=== PATIENT | male | born 1940 | race African-American/Black ===

== ENCOUNTER 2016-06-25 13:38 | Inpatient (IN) | payer MEDICARE, OTHER ==
[~2016-06-25] VITALS: Ht 182.9 cm; Wt 71.2 kg
[~2016-06-25 13:38] MED LIST: CLIN-78; PROPRANOLOL; [UNRECOGNIZED DRUG - OTHER]
[2016-06-25 15:22] LABS: BASOPHILS % 0.5 % (0.0-2.0); EOSINOPHILS % 2.4 % (0.0-5.0); HEMATOCRIT. 33.4 % (42.0-52.0); LYMPHOCYTES % 10.5 % (20.0-50.0); MEAN CORPUSCULAR HEMOGLOBIN 30.8 pg (28.0-32.0); MEAN CORPUSCULAR VOLUME 93.2 fL (80.0-94.0); MEAN PLATELET VOLUME 12.1 fl (7.4-10.4); MONOCYTES % 14.7 % (2.0-8.0); NEUTROPHILS % 71.9 % (40.0-76.0); PLATELET 126 x1000/uL (130-400); RED BLOOD CELL COUNT 3.58 mill/uL (4.7-6.1); WHITE BLOOD COUNT 10.4 x1000/uL (4.5-11.0)
[2016-06-25 15:26] LABS: CHLORIDE 104 mEq/L (98-107); INDEX HEMOLYSI 1 (1-3); INDEX ICTERIC 1 (1-4); INDEX LIPEMIC 1 (1-3)
[2016-06-25 15:30] LABS: ALBUMIN 3.2 g/dL (3.4-5.0); ANION GAP 9; CALCIUM 9.1 mg/dL (8.5-10.1); CARBON DIOXIDE 33 mEq/L (21-32); UREA NITROGEN BLOOD 47 mg/dL (7-21)
[2016-06-25 15:32] LABS: ALANINE AMINOTRANSFERASE 17 IU/L (13-61); ETHANOL BLOOD < 10 mg/dL
[2016-06-25 15:35] LABS: eGFR > 60 mL/min (>60)
[2016-06-25 15:47] LABS: CLARITY URINE CLOUDY (CLEAR); COLOR URINE YELLOW (YELLOW); GLUCOSE URINE NEGATIVE (NEGATIVE); KETONES URINE NEGATIVE (NEGATIVE); LEUKOCYTE ESTERASE URINE 3+ (NEGATIVE); NITRITE URINE POSITIVE (NEGATIVE); OCCULT BLOOD URINE NEGATIVE (NEGATIVE); PH URINE 6.5 (4.5-8.0); PROTEIN URINE NEGATIVE (NEGATIVE); SPECIFIC GRAVITY URINE 1.019 (1.005-1.030)
[2016-06-25 16:04] LABS: *AMPHETAMINES SCREEN URINE NEGATIVE (NEGATIVE); *BARBITURATES SCREEN URINE NEGATIVE (NEGATIVE); *BENZODIAZEPINES SCREEN URINE PRESUMTIVE POSITIVE (NEGATIVE); *COCAINE SCREEN URINE NEGATIVE (NEGATIVE); CANNABINOID URINE SCREEN NEGATIVE (NEGATIVE); ECSTASY MDMA SCREEN URINE NEGATIVE (NEGATIVE); METHADONE URINE SCREEN NEGATIVE (NEGATIVE); OPIATES URINE SCREEN NEGATIVE (NEGATIVE); PHENCYCLIDINE URINE SCREEN NEGATIVE (NEGATIVE)
[2016-06-25] MEDS ORDERED: LEVOFLOXACIN 500MG PREMIX 100 ML IV SCH (16:15)
[2016-06-25 16:16] LABS: BACTERIA URINE 2+; RBC URINE 0-2 /hpf (0-2); SQUAMOUS EPITHELIAL CELL URINE RARE /lpf (RARE/1+); WBC URINE 50-100 /hpf (0-2)
[2016-06-25] MEDS ORDERED: KETOROLAC 30MG/ML VIAL IV ONE (16:30)
[2016-06-25 20:00] VITALS: BP 105/59
[2016-06-25] MEDS ORDERED: SODIUM CHLORIDE 0.9% 1,000 ML IV ONE (21:00)
[2016-06-25] MEDS ORDERED: LACTULOSE 20G/30ML UDC PO PRN (21:15)
[2016-06-25] MEDS ORDERED: MORPHINE SULFATE 2 MG/ML CPJ (NOT FOR IM USE) IV PRN (21:15)
[2016-06-25] MEDS: CEFTRIAXONE 1 G PREMIX 50 ML IV SCH (22:39)
[2016-06-26] VITALS: BP 101/61
[2016-06-26 04:00] VITALS: BP 114/70
[2016-06-26 06:11] LABS: INDEX HEMOLYSI 1 (1-3)
[2016-06-26 06:15] LABS: CREATINE KINASE 141 IU/L (39-308); CREATINE KINASE MB FRACTION 1.2 ng/mL (0.5-3.6); TROPONIN I < 0.02 ng/mL (0.00-0.04)
[2016-06-26 06:27] LABS: BASOPHILS % 0.7 % (0.0-2.0); DIFFERENTIAL COMMENT 0; EOSINOPHILS % 3.3 % (0.0-5.0); HEMATOCRIT. 30.3 % (42.0-52.0); HEMOGLOBIN. 9.8 g/dL (14.0-18.0); LYMPHOCYTES % 18.1 % (20.0-50.0); MEAN CORPUSCULAR HEMOGLOBIN 31.2 pg (28.0-32.0); MEAN CORPUSCULAR HGB CONC 32.5 g/dL (31.0-37.0); MEAN PLATELET VOLUME 12.7 fl (7.4-10.4); MONOCYTES % 14.7 % (2.0-8.0); NEUTROPHILS % 63.2 % (40.0-76.0); PLATELET 111 x1000/uL (130-400); RED BLOOD CELL COUNT 3.15 mill/uL (4.7-6.1); WHITE BLOOD COUNT 8.2 x1000/uL (4.5-11.0)
[2016-06-26 07:29] LABS: INDEX HEMOLYSI 1 (1-3)
[2016-06-26 08:00] VITALS: BP 104/64
[2016-06-26] MEDS: IPRATROPIUM/ALBUTEROL 0.5-3(2.5)MG/3ML NEB HHN SCH ×4 (08:22→21:55)
[2016-06-26] MEDS ORDERED: ACETAMINOPHEN 325MG TABLET PO PRN (10:00)
[2016-06-26 10:56] LABS: ALANINE AMINOTRANSFERASE 10 IU/L (13-61); ALBUMIN 2.9 g/dL (3.4-5.0); ANION GAP 14; CALCIUM 8.8 mg/dL (8.5-10.1); CARBON DIOXIDE 29 mEq/L (21-32); CHLORIDE 105 mEq/L (98-107); INDEX ICTERIC 1 (1-4); INDEX LIPEMIC 1 (1-3); T4 FREE 0.52 ng/dL (0.76-1.46); UREA NITROGEN BLOOD 48 mg/dL (7-21); eGFR > 60 mL/min (>60)
[2016-06-26 12:00] VITALS: BP 116/66
[2016-06-26] MEDS ORDERED: IOHEXOL-300 100 ML BOTTLE ONE (13:54)
[2016-06-26] MEDS ORDERED: SODIUM CHLORIDE 0.9% 10ML VIAL ONE (13:54)
[2016-06-26 16:00] VITALS: BP 95/52
[2016-06-26] MEDS ORDERED: LEVOFLOXACIN 250MG PREMIX 50 ML IV SCH (16:00)
[2016-06-26 16:09] LABS: CREATINE KINASE 131 IU/L (39-308); CREATINE KINASE MB FRACTION 1.5 ng/mL (0.5-3.6); INDEX HEMOLYSI 1 (1-3); TROPONIN I < 0.02 ng/mL (0.00-0.04)
[2016-06-26 20:00] VITALS: BP 114/67
[2016-06-26] MEDS ORDERED: ZOLPIDEM TARTRATE 5MG TABLET PO PRN (21:00)
[2016-06-26] MEDS: CEFTRIAXONE 1 G PREMIX 50 ML IV SCH (21:50)
[2016-06-26 23:12] LABS: CREATINE KINASE 122 IU/L (39-308); CREATINE KINASE MB FRACTION 0.9 ng/mL (0.5-3.6); INDEX HEMOLYSI 1 (1-3); TROPONIN I < 0.02 ng/mL (0.00-0.04)
[2016-06-27] VITALS: BP 132/76
[2016-06-27] MEDS: IPRATROPIUM/ALBUTEROL 0.5-3(2.5)MG/3ML NEB HHN SCH ×6 (01:03→20:37)
[2016-06-27 04:00] VITALS: BP 134/79
[2016-06-27 08:00] VITALS: BP 125/72
[2016-06-27] MEDS ORDERED: ACETAMINOPHEN 325MG TABLET PO PRN (10:00)
[2016-06-27] MEDS ORDERED: MAGNESIUM HYDROXIDE 400MG/5ML 30ML UDC PO PRN (10:00)
[2016-06-27] MEDS ORDERED: ZOLPIDEM TARTRATE 5MG TABLET PO PRN (10:00)
[2016-06-27 11:25] LABS: ANION GAP 11; CALCIUM 9.6 mg/dL (8.5-10.1); CARBON DIOXIDE 33 mEq/L (21-32); CHLORIDE 104 mEq/L (98-107); INDEX HEMOLYSI 1 (1-3); INDEX ICTERIC 1 (1-4); INDEX LIPEMIC 1 (1-3); UREA NITROGEN BLOOD 30 mg/dL (7-21); eGFR > 60 mL/min (>60)
[2016-06-27 12:00] VITALS: BP 149/82
[2016-06-27] MEDS: ENOXAPARIN 40MG/0.4ML SYR SUBCUT SCH (15:10)
[2016-06-27] MEDS: LEVOTHYROXINE SODIUM 50MCG TABLET PO SCH (15:10)
[2016-06-27 16:00] VITALS: BP 147/84
[2016-06-27 20:00] VITALS: BP 131/87
[2016-06-27] MEDS: CEFTRIAXONE 1 G PREMIX 50 ML IV SCH (21:50)
[2016-06-28] VITALS: BP 132/76
[2016-06-28] MEDS ORDERED: ACETAMINOPHEN 325MG TABLET GT PRN ×2 (01:45→04:00)
[2016-06-28] MEDS: IPRATROPIUM/ALBUTEROL 0.5-3(2.5)MG/3ML NEB HHN SCH ×4 (03:27→13:29)
[2016-06-28 04:00] VITALS: BP 111/64
[2016-06-28 06:06] LABS: HEMATOCRIT. 31.6 % (42.0-52.0); HEMOGLOBIN. 10.4 g/dL (14.0-18.0); MEAN CORPUSCULAR HEMOGLOBIN 30.6 pg (28.0-32.0); MEAN CORPUSCULAR HGB CONC 32.9 g/dL (31.0-37.0); MEAN CORPUSCULAR VOLUME 93.1 fL (80.0-94.0); MEAN PLATELET VOLUME 12.4 fl (7.4-10.4); PLATELET 129 x1000/uL (130-400); RED BLOOD CELL COUNT 3.39 mill/uL (4.7-6.1); RED CELL DISTRIBUTION WIDTH 14.8 % (11.6-14.6); WHITE BLOOD COUNT 7.4 x1000/uL (4.5-11.0)
[2016-06-28 06:25] LABS: ANION GAP 12; CALCIUM 9.1 mg/dL (8.5-10.1); CARBON DIOXIDE 32 mEq/L (21-32); CHLORIDE 103 mEq/L (98-107); INDEX HEMOLYSI 1 (1-3); INDEX ICTERIC 1 (1-4); INDEX LIPEMIC 1 (1-3); UREA NITROGEN BLOOD 25 mg/dL (7-21); eGFR > 60 mL/min (>60)
[2016-06-28 07:16] LABS: DIFFERENTIAL COMMENT 1
[2016-06-28 08:00] VITALS: BP 126/75
[2016-06-28] MEDS: LEVOTHYROXINE SODIUM 50MCG TABLET PO SCH (08:37)
[2016-06-28] MEDS: ENOXAPARIN 40MG/0.4ML SYR SUBCUT SCH (08:38)
[2016-06-28 12:00] VITALS: BP 120/76
[2016-06-28 14:08] LABS: PLATELET ESTIMATE NORMAL
[2016-06-28 14:47] VITALS: BP 122/74
[2016-06-28 15:02] VITALS: BP 122/74
[2016-06-29] MEDS ORDERED: LEVOTHYROXINE SODIUM 150MCG TABLET PO SCH (07:40)
== END 2016-06-28 15:30 | disposition home or self-care (01) | DRG 682 ==
LOC: ER 15:30 → 7WST 16:30
PROVIDERS: ADMIT Internal Medicine; ATTEND Internal Medicine
DX: N17.9 Acute kidney failure, unspecified (principal); J96.20 Acute and chronic respiratory failure, unspecified whether with hypoxia or hypercapnia; N39.0 Urinary tract infection, site not specified; E46 Unspecified protein-calorie malnutrition; J44.1 Chronic obstructive pulmonary disease with (acute) exacerbation; R64 Cachexia; N40.0 Benign prostatic hyperplasia without lower urinary tract symptoms; D64.9 Anemia, unspecified; E03.9 Hypothyroidism, unspecified; E86.0 Dehydration; R91.8 Other nonspecific abnormal finding of lung field; F17.210 Nicotine dependence, cigarettes, uncomplicated; I25.10 Atherosclerotic heart disease of native coronary artery without angina pectoris; R16.0 Hepatomegaly, not elsewhere classified; K59.00 Constipation, unspecified; I51.7 Cardiomegaly; M19.019 Primary osteoarthritis, unspecified shoulder; N18.9 Chronic kidney disease, unspecified; W18.39XA Other fall on same level, initial encounter; Y93.89 Activity, other specified; Z93.1 Gastrostomy status; Y92.89 Other specified places as the place of occurrence of the external cause; Y99.8 Other external cause status; Z85.819 Personal history of malignant neoplasm of unspecified site of lip, oral cavity, and pharynx; Z68.21 Body mass index [BMI] 21.0-21.9, adult
CPT/HCPCS: 36415; 70450; 71010; 71270; 74178; 76700; 80048; 80053; 80305; 81001; 82550; 82553; 82962; 83605; 84439; 84443; 84484; 85025; 87086; 93306; 94640; 96365; 96375; 97162; 97165; 97530; 99285; A4216; G0482; J0696; J1650; J1885; J1956; J7040; J7620; Q9967

== ENCOUNTER 2017-02-22 04:32 | Emergency (ER) | payer MEDICARE, OTHER ==
[~2017-02-22] VITALS: Ht 182.9 cm; Wt 75.0 kg
[~2017-02-22 04:32] MED LIST changes: -CLIN-78; +CLIN150C14
[2017-02-22] MEDS ORDERED: DIATR MEGLU/DIATRIZOATE SOLN 30ML PO ONE (05:30)
[2017-02-22] MEDS ORDERED: DIATR MEGLU/DIATRIZOATE SOLN 30ML ONE (06:51)
[2017-02-22 07:48] VITALS: BP 168/92
== END 2017-02-22 07:51 | disposition home or self-care (01) ==
LOC: ER 05:12
DX: K94.23 Gastrostomy malfunction (principal); Y83.8 Other surgical procedures as the cause of abnormal reaction of the patient, or of later complication, without mention of misadventure at the time of the procedure; Y82.8 Other medical devices associated with adverse incidents; Z85.89 Personal history of malignant neoplasm of other organs and systems
CPT/HCPCS: 51702; 74000; 99284; Q9963